=== PATIENT | female | born 1955 | race Caucasian/White ===

== ENCOUNTER 2018-05-08 11:49 | Observation (INO) | payer BC ==
--- NOTE | 2018-05-08 12:17 | PDOC ---
Attending Attestation - Resident Resident Name: HedyMelody mahmood - HPI HPI: 05/08/18 14:39 Pt presents to the ED complaining of a two week history of intermittent blood streaked sputum, accompanied by a 10 lb unintentional weightloss and night sweats. Patient has no risk factors for TB. Reports a 40 pack year smoking history. presented to her PMD today who advised her to come to the ED for further work up. Denies fevers. Denies risk factors for TB. - Physicial Exam PE: 05/08/18 15:08 agree with resident exam. Patient is resting comfortably in no acute distress. Lungs are clear. Heart: RRR no m/r/g. Pulm: CTA b/l Abdomen: soft, non tender, non distended. - Medical Decision Making 05/08/18 15:09 Pt presents to the ED complaining of two weeks of intermittent hemoptusis. Well appearing in the ED. Differential includes TB, malignancy, less likely PE or tracheoarterial fistula. Will check labs and Ct chest to evaluate for disease. Given possibility of active TB, will likely admit to medicine for evaluation for possible TB.
--- NOTE | 2018-05-08 12:52 | PDOC ---
History of Present Illness - General Chief Complaint: Hemoptysis Stated Complaint: Hemoptysis Time Seen by Provider: 05/08/18 12:15 History Source: Patient Exam Limitations: No Limitations - History of Present Illness Initial Comments: 05/08/18 12:51 Pt is a 63yo F with PMH of anxiety, hypothyroid, IBS presenting to ED from PCP office for evaluation of hemoptysis. Pt has been coughing up blood since Monday. Pt said she had one episode on 04/13, then nothing until this past Monday. Pt had coughed up a total of 6-8 of what looks like clots. She admits to 10lb weight loss since April and night sweats. She denies SOB, chest pain, lightheadedness, fever, chills, congestion, swelling/pain in the legs. She recently traveled to [place] in Sep/Oct and then to [facility] in April via [place]. She has been smoking 1ppd since she was in her 20s. She denies history of lung cancer in the family. Father was diagnosed with leukemia when he was "old". PMH: see hpi PSH: none Meds: Buspar, Lexapro, levothyroxine Allergies: nkda Social: 1ppd, occasional alcohol use, denies illicit drug use Past History - Past Medical History Allergies/Adverse Reactions: Allergies Allergy/AdvReac Type Severity Reaction Status Date / Time No Known Allergies Allergy Verified 05/08/18 12:11 Home Medications: Ambulatory Orders Ascorbic Acid [Vitamin C] 500 mg PO BID 03/11/16 Buspirone HCl [Buspar -] 10 mg PO BID 03/11/16 Calcium/Magnesium/Vit D3 [Calcium 500 mg Tablet] 2 each PO DAILY 03/11/16 Cholecalciferol (Vitamin D3) [Vitamin D3] 2,000 unit PO DAILY 03/11/16 Escitalopram Oxalate [Lexapro -] 20 mg PO HS 03/11/16 Latanoprost 0.005% Eye Drops [Xalatan 0.005% Eye Drops -] 1 drop OU HS 03/11/16 Levomefolate/B6/B12/Algal Oil [Metanx Capsule] 1 each PO DAILY 03/11/16 Levothyroxine [Synthroid -] 50 mcg PO DAILY 03/11/16 Anemia: No Asthma: No Cancer: No Cardiac Disorders: No CVA: No COPD: No CHF: No Dementia: No Diabetes: No GI Disorders: No Disorders: No HTN: No Hypercholesterolemia: No Liver Disease: No Seizures: No Thyroid Disease: Yes (HYPOTHYROIDSM) - Surgical History Abdominal Surgery: No Appendectomy: No Cardiac Surgery: No Cholecystectomy: No Lung Surgery: No Neurologic Surgery: No Orthopedic Surgery: No - Suicide/Smoking/Psychosocial Hx Smoking History: Former smoker Have you smoked in the past 12 months: No Number of Cigarettes Smoked Daily: 10 If you are a former smoker, when did you quit?: 3 MONTHS AGO Cigars Per Day: 0 Information on smoking cessation initiated: No Hx Alcohol Use: No Drug/Substance Use Hx: No Substance Use Type: Alcohol Review of Systems - Review of Systems Constitutional: Yes: Night Sweats, Unintentional Wgt. Loss. No: Chills, Fever, Weakness HEENTM: No: Recent change in vision, Double Vision Respiratory: Yes: Cough, Hemoptysis. No: Shortness of Breath, Wheezing Cardiac (ROS): No: Chest Pain, Lightheadedness, Palpitations, Syncope, Chest Tightness ABD/GI: Yes: Constipated (due to IBS), Diarrhea (due to IBS). No: Nausea, Vomiting : No: Burning, Dysuria, Frequency Musculoskeletal: Yes: Back Pain (chronic lower back pain) Neurological: No: Headache, Numbness, Tingling *Physical Exam - Vital Signs Last Vital Signs Temp Pulse Resp BP Pulse Ox 98.2 F 82 16 108/55 100 05/08/18 12:06 05/08/18 12:06 05/08/18 12:06 05/08/18 12:06 05/08/18 12:06 - Physical Exam General Appearance: Yes: Appropriately Dressed, Thin. No: Apparent Distress HEENT: positive: EOMI, ROSAURA, Pharynx Normal, Hearing Grossly Normal. negative: Pale Conjunctivae, Scleral Icterus (R), Scleral Icterus (L), Nasal Congestion Neck: positive: Trachea midline, Supple. negative: Carotid bruit, Lymphadenopathy (R), Lymphadenopathy (L) Respiratory/Chest: positive: Lungs Clear, Normal Breath Sounds. negative: Crackles, Rales, Rhonchi, Stridor Cardiovascular: positive: Regular Rhythm, Regular Rate, S1, S2. negative: JVD, Murmur Vascular Pulses: Carotid (R): 2+, Carotid (L): 2+, Dorsalis-Pedis (R): 2+, Doralis-Pedis (L): 2+ Gastrointestinal/Abdominal: positive: Normal Bowel Sounds, Soft, Tenderness ( diffuse tenderness). 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 DDx: malignancy, TB, PE Will do basic labs and CXR, CTA chest. 05/08/18 22:31 Labs wnl. No acute findings on CXR or CTA. Will admit obs for TB rule out. *DC/Admit/Observation/Transfer Diagnosis at time of Disposition: Tuberculosis - Discharge Dispostion Decision to Admit order: Yes - Referrals - Patient Instructions - Post Discharge Activity
[2018-05-08 13:38] LABS: BASO % 0.8 % (0-2.0); EOS % 1.1 % (0-4.5); HEMATOCRIT 38.3 % (32.4-45.2); HEMOGLOBIN 13.1 GM/dL (10.7-15.3); MCH 32.2 pg (25.7-33.7); MCHC 34.2 g/dl (32.0-36.0); MEAN CELL VOLUME 94.2 fl (80-96); MEAN PLT VOLUME 9.3 fl (7.5-11.1); MONO % 6.8 % (3.8-10.2); NEUT % 55.3 % (42.8-82.8); PLATELET COUNT 182 K/MM3 (134-434); RBC 4.07 M/mm3 (3.60-5.2); RDW 12.2 % (11.6-15.6)
[2018-05-08 13:54] LABS: INR 1.02 (0.83-1.09); PROTHROMBIN TIME (PATIENT) 11.5 SEC (9.7-13.0)
[2018-05-08 14:13] LABS: POTASSIUM 4.1 mmol/L (3.5-5.1)
[2018-05-08 14:39] LABS: ALBUMIN 3.7 g/dl (3.4-5.0); ANION GAP 10 MMOL/L (8-16); BILIRUBIN,TOTAL 0.2 mg/dL (0.2-1.0); BLOOD UREA NITROGEN 18 mg/dL (7-18); CALCIUM 9.3 mg/dL (8.5-10.1); CHLORIDE 105 mmol/L (98-107); CO2 28 mmol/L (21-32); CREATININE 0.9 mg/dL (0.55-1.02); GLUCOSE,RANDOM 109 mg/dL (74-106); SGOT/AST 18 U/L (15-37); SGPT/ALT 26 U/L (12-78); SODIUM 143 mmol/L (136-145); TOT PROT 6.8 g/dl (6.4-8.2)
[2018-05-08 14:40] LABS: ALK PHOS 55 U/L (45-117)
[2018-05-08] MEDS ORDERED: SODIUM CHLORIDE 1,000 ML IV STA (14:43)
--- NOTE | 2018-05-08 22:24 | PN ---
Teaching Attending Note Name of Resident: Margi Ellington ATTENDING PHYSICIAN STATEMENT I saw and evaluated the patient. Chart, data, imaging reviewed/ I reviewed the resident's note and discussed the case with the resident. I agree with the resident's findings and plan as documented. SUBJECTIVE: 63yo woman with baseline anxiety, IBS, chronic smoker -40 pack years c/o episode of brownish phlegm when coughing 04/23/18 and again on 05/03/18 with slightly more brownish-black sputum concerning for blood. She denied any shortness of breath, of significant chest pain but does c/o chronic abdominal pain that she attributes to IBS. No history of PPD or qunatiferon gold that she remembers. Sent to ER by PCP for further evaluation. No TB contacts, born in [place] , never incarcerated. OBJECTIVE: Last Vital Signs Temp Pulse Resp BP Pulse Ox 98.2 F 68 18 162/104 98 05/08/18 21:59 05/08/18 21:59 05/08/18 21:59 05/08/18 21:59 05/08/18 21:59 general- appears anxious, nad heent- at ,nc neck -no jvd chest -clear b/l cv -s1+S2+rrr abdomen -soft, no masses, normal BS, some guarding on palpation skin - no rashes seen Abnormal Lab Results 05/08/18 13:27 Random Glucose [address] and cxr -reviewed with report, CT neg for PE ASSESSMENT AND PLAN: 63yo woman with scant hemoptysis likely from bronchitis from smoking. No risk factors for TB identified and imaging was wnl. H,H wnl. -observation -stressed smoking cessation -avoid antiplatelet agents and heparin -quantiferon gold -monitor BP, H,H -restart home medications -SCDs for DVT ppx -see resident note for details
--- NOTE | 2018-05-08 22:37 | HP ---
CHIEF COMPLAINT: Blood in Cough PCP: Dr. 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 Patient has a 40 pack year smoking hx and says she has had chronic "smokers cough" for ~5 years. On 04/23, Patient finished breakfast and began to cough up white phlegm with a small amount of dark brown blood. Patient had no repeat of this cough with blood until 05/03 when she again, coughed up white phlegm with a much larger portion of dark brown blood. Since 05/03, this cough with small amounts of blood has occurs daily until yesterday. Today patient went to visit her PCP who suggested she come to the ED. The cough is accompanied by some midsternal chest tightness but no chest pain or pressure. She additionally complains of a subjective 10lb weight loss during April. She also experiences Night sweats that occurred initially but she now feels diaphoretic during the day as well. Lastly, she complains of a subjective audible wheeze heard over the past 2 weeks. Patient admits to being stressed lately due to her husbands health issues (3 seizures this year). She has tried to use milk and honey for her cough however this has not provided any relief. Patient denies any travel to [place], [place], or [place]. She denies having any hx of homelessness, IVDA, Working in a halfway or local intermodal truck driver health facility, being immunocompromised or malnourished. Patient denies having any sick contacts or anyone she knows of with a similar illness. Patient denies having any past PPD, Quantiferon tests, or HIV tests. 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 [employer] Residence: At home with Ambulation: On her own without assitance Family History: Mother: Hx of TB in 1930, HLD, Thyroid Goiter Father: Leukemia, Depression Allergies No Known Allergies Allergy (Verified 05/08/18 12:11) HOME MEDICATIONS: Home Medications Medication Instructions Recorded Ascorbic Acid [Vitamin C] 500 mg PO BID 03/11/16 Buspirone HCl [Buspar -] 10 mg PO BID 03/11/16 Calcium/Magnesium/Vit D3 [Calcium 2 each PO DAILY 03/11/16 500 mg Tablet] Cholecalciferol (Vitamin D3) 2,000 unit PO DAILY 03/11/16 [Vitamin D3] Escitalopram Oxalate [Lexapro -] 20 mg PO HS 03/11/16 Latanoprost 0.005% Eye Drops 1 drop OU HS 03/11/16 [Xalatan 0.005% Eye Drops -] Levomefolate/B6/B12/Algal Oil 1 each PO DAILY 03/11/16 [Metanx Capsule] Levothyroxine [Synthroid -] 50 mcg PO DAILY 03/11/16 REVIEW OF SYSTEMS CONSTITUTIONAL: Present: diaphoresis, night sweats, weight change Absent: fever, chills, generalized weakness, malaise, loss of appetite, HEENT: Absent: rhinorrhea, nasal congestion, throat pain, throat swelling, difficulty swallowing, mouth swelling, ear pain, eye pain, visual changes CARDIOVASCULAR: Present: Chest tightness Absent: chest pain, syncope, palpitations, irregular heart rate, lightheadedness , peripheral edema RESPIRATORY: Present: Cough (Smokers), hemoptysis, wheezing, Absent: shortness of breath, dyspnea with exertion, orthopnea, stridor, GASTROINTESTINAL: Present: abdominal pain, diarrhea, constipation Absent: abdominal distension, nausea, vomiting, melena, hematochezia GENITOURINARY: Absent: dysuria, frequency, urgency, hesitancy, hematuria, flank pain, genital pain MUSCULOSKELETAL: Absent: myalgia, arthralgia, joint swelling, back pain, neck pain SKIN: Absent: rash, itching, pallor HEMATOLOGIC/IMMUNOLOGIC: Absent: easy bleeding, easy bruising, lymphadenopathy, frequent infections ENDOCRINE: Present: unexplained weight loss, Absent: unexplained weight gain, heat intolerance, cold intolerance NEUROLOGIC: Absent: headache, focal weakness or paresthesias, dizziness, unsteady gait, seizure, mental status changes, bladder or bowel incontinence PSYCHIATRIC: Present: anxiety, Absent: depression, suicidal or homicidal ideation, hallucinations. PHYSICAL EXAMINATION Vital Signs - 24 hr 05/08/18 05/08/18 05/08/18 12:06 18:05 20:24 Temperature 98.2 F 98.4 F Pulse Rate 82 Pulse Rate [ 67 68 Right] Respiratory 16 17 18 Rate Blood Pressure 108/55 Blood Pressure 181/86 153/95 [Right Arm] O2 Sat by Pulse 100 100 98 Oximetry (%) GENERAL: Awake, alert, and fully oriented, in no acute distress. HEAD: NCAT EYES: PERRL, EOMI THROAT: Oropharynx clear without exudates. Moist mucous membranes. NECK: No JVD LUNGS: Breath sounds equal, clear to auscultation bilaterally. No wheezes, and no crackles. HEART: Regular rate and rhythm, normal S1 and S2 without murmur. ABDOMEN: Soft, Tender to palpation throughout, not distended, normoactive bowel sounds, no guarding MUSCULOSKELETAL: Normal range of motion at all joints. No CVA tenderness. EXTREMITIES: 2+ pulses, warm, well-perfused. No calf tenderness. No peripheral edema. NEUROLOGICAL: Cranial nerves II-XII intact. Normal speech. PSYCHIATRIC: Cooperative. Good eye contact. SKIN: Warm, dry, no rashes or lesions noted Laboratory Results - last 24 hr 05/08/18 05/08/18 05/08/18 13:27 13:27 13:27 WBC 6.0 RBC 4.07 Hgb 13.1 Hct 38.3 MCV 94.2 MCH 32.2 MCHC 34.2 RDW 12.2 Plt Count 182 MPV 9.3 Absolute Neuts (auto) 3.3 Neutrophils % 55.3 Lymphocytes % 36.0 Monocytes % 6.8 Eosinophils % 1.1 Basophils % 0.8 Nucleated RBC % 0 PT with INR 11.50 INR 1.02 Sodium 143 Potassium 4.1 Chloride 105 Carbon Dioxide 28 Anion Gap 10 BUN 18 Creatinine 0.9 Creat Clearance w eGFR > 60 Random Glucose 109 H Calcium 9.3 Total Bilirubin 0.2 AST 18 ALT 26 Alkaline Phosphatase 55 Troponin I < 0.02 Total Protein 6.8 Albumin 3.7 Active Medications Bupropion HCl (Wellbutrin Xl -) 150 mg PO DAILY [facility] Buspirone HCl (Buspar -) 10 mg PO TID [facility] Escitalopram Oxalate (Lexapro -) 20 mg PO DAILY [facility] Levothyroxine Sodium (Synthroid -) 50 mcg PO DAILY [facility] Nicotine (Nicoderm Patch -) 21 mg TD DAILY [facility] IMAGING: - CXR: No acute chest pathology. No comparison studies - CTA: No CT evidence of pulmonary embolism or other acute pathology. Minimal to mild bilateral lower lung field subpleural discoid atelectasis. Minimal to mild bilateral apical pleural thickening. ASSESSMENT/PLAN: 63 y/o female with a PMHx of Anxiety, Chronic Diarrhea/Constipation, Hypothyroidism, Migraines, Idiopathic Neuropathy in B/L Lower extremities presents with a 2 week hx of blood per sputum Likely from bronchitis from smoking will be observed 1. Hemoptysis - Like due to Bronchitis from extensive smoking hx; Less likely due to TB, PE, Malignancy - CXR: No acute chest pathology - CTA: No CT evidence of pulmonary embolism or other acute pathology. - Quantiferon gold test ordered to r/o TB; If positive can consider 3 sputum AFBs to r/o - Continue to monitor for tachycardia, Hypotension, drop in H&H - Stressed smoking cessation as patient admits she was able to quit for 3 years previously - Nicoderm 21mg - Continue Home dose Bupropion to aid in smoking cessation - As per nursing staff, Patient requests HIV and Hepatitis C Screening, Ordered 2. Anxiety - Continue Home dose Lexapro, Buspar (Med's Reconciled) 3. Hypothyroidism - Continue Home dose Synthroid 4. FEN - PO Fluids - Lytes WNL - Regular Diet 5. PPx - DVT: SCDs, Avoid antiplatelet agents and heparin Dispo: Med-Surg Obs Visit type - Emergency Visit Emergency Visit: Yes ED Registration Date: 05/08/18 Care time: The patient presented to the Emergency Department on the above date and was hospitalized for further evaluation of their emergent condition. - New Patient This patient is new to me today: Yes Date on this admission: 05/09/18 - Critical Care Critical Care patient: No Hospitalist Screening - Colonoscopy Questionnaire Colonoscopy Questionnaire: Colonoscopy Questionnaire - Patient: 50 - 75 years old and never had a screening colonoscopy: Unknown History of colon or rectal polyps, or CA: Unknown History of IBD, Crohn's disease or UC: Unknown History of abdominal radiation therapy as a child: Unknown - Relative: 1 with colon or rectal CA, or polyps at age 60 or younger: Unknown Colon or rectal CA diagnosed at age 45 or younger: Unknown Multiple relatives with colon or rectal CA: Unknown - Outcome: Screening Result: Negative Screen
[2018-05-08] MEDS: busPIRone HCL 10 MG TABLET (FP) PO SCH (23:27)
[2018-05-09 00:21] VITALS: BMI 20.9
[2018-05-09] MEDS: LEVOTHYROXINE NA 50 MCG TABLET (FP) PO SCH (06:13)
[2018-05-09] MEDS: busPIRone HCL 10 MG TABLET (FP) PO SCH ×3 (06:13→21:22)
[2018-05-09] MEDS: NICOTINE 21 MG/24 HOURS TOPICAL PATCH TD SCH (06:28)
[2018-05-09 08:09] LABS: BASO % 0.8 % (0-2.0); EOS % 1.9 % (0-4.5); HEMATOCRIT 38.1 % (32.4-45.2); LYMPH % 40.3 % (8-40); MEAN CELL VOLUME 94.1 fl (80-96); MONO % 8.5 % (3.8-10.2); NEUT % 48.5 % (42.8-82.8); PLATELET COUNT 176 K/MM3 (134-434); RBC 4.05 M/mm3 (3.60-5.2); RDW 12.2 % (11.6-15.6); WHITE BLOOD COUNT 5.6 K/mm3 (4.0-10.0)
[2018-05-09 08:16] LABS: ALBUMIN 3.5 g/dl (3.4-5.0); ALK PHOS 51 U/L (45-117); ANION GAP 7 MMOL/L (8-16); BILIRUBIN,TOTAL 0.4 mg/dL (0.2-1.0); BLOOD UREA NITROGEN 21 mg/dL (7-18); CALCIUM 8.8 mg/dL (8.5-10.1); CHLORIDE 107 mmol/L (98-107); CO2 28 mmol/L (21-32); CREATININE 0.8 mg/dL (0.55-1.02); GLUCOSE,RANDOM 91 mg/dL (74-106); PHOSPHOROUS 4.2 mg/dL (2.5-4.9); POTASSIUM 4.1 mmol/L (3.5-5.1); SGOT/AST 18 U/L (15-37); SGPT/ALT 23 U/L (12-78); SODIUM 142 mmol/L (136-145); TOT PROT 6.5 g/dl (6.4-8.2)
[2018-05-09] MEDS: ESCITALOPRAM OXALATE 20 MG TABLET (FP) PO SCH (10:16)
--- NOTE | 2018-05-09 11:59 | EKG ---
Test Reason : Blood Pressure : / mmHG Vent. Rate : 063 BPM Atrial Rate : 063 BPM P-R Int : 160 ms QRS Dur : 086 ms QT Int : 458 ms P-R-T Axes : 068 043 057 degrees QTc Int : 468 ms NORMAL SINUS RHYTHM NORMAL ECG NO PREVIOUS ECGS AVAILABLE Confirmed by JAVON HUGO, NATACHA ([id number]) on 05/09/2018 11:58:29 AM Referred By: Confirmed By:NATACHA ALEJANDRO MD
[2018-05-09] MEDS ORDERED: PT OWN MED DRAWER 7, Y5N ONE ×2 (13:10→21:18)
--- NOTE | 2018-05-09 14:53 | CON.PULM ---
Consult Consult Specialty:: PULMONARY Referred by:: FARRUKH Kaiser Reason for Consultation:: hemoptysis - History of Present Illness Chief Complaint: hemoptysis History of Present Illness: 63yo female with h/o anxiety, hypothyroidism, migraines, long time smoker who was admitted with hemoptysis x 2 weeks. Hemoptysis described as dark blood less than 1 tsp over 3 days. No chest pain or palpitations. No shortness of breath or wheezing. She did cough up a large hard material with the initial hemoptysis. She denies any fevers or chills but with occasional sweats. Has lost 5 lbs in the last month. Denies any prior PPD. Mother had TB in 1909 and was quarantined. She was recently in [place] on vacation. She started smoking at age 23, smoked on average 1/2-1 PPD until admission. Works in [email or web address]. Has cats at home. - History Source History Provided By: Patient, Medical Record Limitations to Obtaining History: No Limitations - Past Medical History ...LMP: 09/04/02 ...: No Psych: Yes: Anxiety Endocrine: Yes: Hypothyroidism - Alcohol/Substance Use Hx Alcohol Use: No - Smoking History Smoking history: Former smoker Have you smoked in the past 12 months: No Aproximately how many cigarettes per day: 10 If you are a former smoker, when did you quit?: 3 MONTHS AGO Home Medications - Allergies Allergies/Adverse Reactions: Allergies Allergy/AdvReac Type Severity Reaction Status Date / Time No Known Allergies Allergy Verified 05/08/18 12:11 - Home Medications Home Medications: Ambulatory Orders Buspirone HCl [Buspar -] 10 mg PO TID 03/11/16 Escitalopram Oxalate [Lexapro -] 20 mg PO DAILY 03/11/16 Levothyroxine [Synthroid -] 50 mcg PO DAILY 03/11/16 Bupropion HCl [Bupropion Xl] 150 mg PO DAILY 05/08/18 Review of Systems - Review of Systems Constitutional: reports: Unintentional Wgt. Loss. denies: Chills, Fever, Weakness Eyes: denies: Recent Change in Vision HENT: denies: Nasal Congestion, Throat Pain Neck: denies: Stiffness, Tenderness Cardiovascular: denies: Chest Pain, Palpitations, Shortness of Breath Respiratory: reports: Cough, Hemoptysis. denies: SOB on Exertion, Wheezing Gastrointestinal: denies: Abdominal Pain, Nausea, Vomiting Genitourinary: denies: Dysuria, Hematuria Neurological: denies: Dizziness, Headache Endocrine: reports: Unexplained Weight Loss Physical Exam Vital Sings: Vital Signs Temperature 98.7 F 05/09/18 09:00 Pulse Rate 71 05/09/18 09:00 Respiratory Rate 20 05/09/18 09:00 Blood Pressure 124/66 05/09/18 09:00 O2 Sat by Pulse Oximetry (%) 96 05/09/18 05:52 Constitutional: Yes: Anxious Eyes: Yes: Conjunctiva Clear, EOM Intact HENT: Yes: Atraumatic, Normocephalic, Other (large left nasal polyp) Neck: Yes: Supple Cardiovascular: Yes: Regular Rate and Rhythm Respiratory: Yes: Diminished (decreased breath sounds at the bases) ...Clubbing: No Gastrointestinal: Yes: Normal Bowel Sounds, Soft. No: Tenderness Edema: No Neurological: Yes: Alert, Oriented Labs: CBC, BMP 05/09/18 07:00 05/09/18 06:00 Imaging - Results Chest X-ray: Report Reviewed, Image Reviewed Cat Scan: Report Reviewed, Image Reviewed (apical thickening, no infiltrates, no endobronchial lesions noted) Problem List - Problems (1) Hemoptysis Code(s): R04.2 - HEMOPTYSIS (2) Acute bronchitis Code(s): J20.9 - ACUTE BRONCHITIS, UNSPECIFIED (3) Hypothyroidism Code(s): E03.9 - HYPOTHYROIDISM, UNSPECIFIED (4) Anxiety Code(s): F41.9 - ANXIETY DISORDER, UNSPECIFIED Assessment/Plan Hemoptysis likely from Acute Bronchitis Anxiety Hypothyroidism Smoker - CTA chest without evidence of pulmonary infiltrates, endobronchial lesions, pulmonary emboli or pulmonary AVM - less likely tuberculosis given absence of infiltrates but can check PPD or quantiferon gold - would obtain sputum culture if she produces any, she has not had any recurrent episodes since admission - would treat with empiric antibiotics x 5-7 days for acute bronchitis and a short course of prednisone 40mg daily x 5 days - she should see ENT as outpt for her large nasal polyp which could produce occult epistaxis and be mistaken for hemoptysis - outpt PFTs for her smoking history - smoking cessation encouraged - DVT prophylaxis Thank you for this consult Gal Phillips MD
--- NOTE | 2018-05-09 15:51 | PN ---
Physical Exam: SUBJECTIVE: Patient seen and examined at the bedside. In no acute distress. denies chest pain or shortness of breath. no further hempotysis per patient. OBJECTIVE: Vital Signs Period Temp Pulse Resp BP Sys/Davies Pulse Ox Last 24 Hr 97.9 F-98.7 F 64-71 16-20 111-181/64-104 96-100 GENERAL: The patient is awake, alert, and fully oriented, in no acute distress. HEAD: Normal with no signs of trauma. EYES: PERRL, extraocular movements intact, sclera anicteric, conjunctiva clear. No ptosis. ENT: Ears normal, nares patent, oropharynx clear without exudates, moist mucous membranes. NECK: Trachea midline, full range of motion, supple. LUNGS: Breath sounds equal, clear to auscultation bilaterally, no wheezes, no crackles HEART: Regular rate and rhythm, S1, S2 without murmur, rub or gallop. ABDOMEN: Soft, nontender, nondistended, normoactive bowel sounds, no guarding, no rebound, no hepatosplenomegaly, no masses. EXTREMITIES: no edema. NEUROLOGICAL: Normal speech, gait not observed. PSYCH: Normal mood, normal affect. SKIN: Warm, dry, normal turgor, no rashes or lesions noted Laboratory Results - last 24 hr 05/09/18 05/09/18 05/09/18 06:00 07:00 07:00 WBC 5.6 RBC 4.05 Hgb 13.0 Hct 38.1 MCV 94.1 MCH 32.0 MCHC 34.0 RDW 12.2 Plt Count 176 MPV 9.0 Absolute Neuts (auto) 2.7 Neutrophils % 48.5 Lymphocytes % 40.3 H Monocytes % 8.5 Eosinophils % 1.9 Basophils % 0.8 Nucleated RBC % 0 Sodium 142 Potassium 4.1 Chloride 107 Carbon Dioxide 28 Anion Gap 7 L BUN 21 H Creatinine 0.8 Creat Clearance w eGFR > 60 Random Glucose 91 Calcium 8.8 Phosphorus 4.2 Magnesium 2.0 Total Bilirubin 0.4 AST 18 ALT 23 Alkaline Phosphatase 51 Total Protein 6.5 Albumin 3.5 HIV 1&2 Antibody Screen Negative HIV P24 Antigen Negative Active Medications Generic Name Dose Route Start Last Admin Trade Name Freq PRN Reason Stop Dose Admin Bupropion HCl 150 mg 05/09/18 10:00 05/09/18 10:16 Wellbutrin Xl - PO 150 mg DAILY MICKI Administration Buspirone HCl 10 mg 05/08/18 23:15 05/09/18 13:32 Buspar - PO 10 mg TID MICKI Administration Escitalopram Oxalate 20 mg 05/09/18 10:00 05/09/18 10:16 Lexapro - PO 20 mg DAILY MICKI Administration Levofloxacin 500 mg 05/09/18 15:15 Levaquin - PO 05/13/18 06:01 DAILY@0600 MICKI Levothyroxine Sodium 50 mcg 05/09/18 07:00 05/09/18 06:13 Synthroid - PO 50 mcg 0700 MICKI Administration Nicotine 21 mg 05/09/18 06:30 05/09/18 06:28 Nicoderm Patch - TD 21 mg DAILY@0600 MICKI Administration Prednisone 40 mg 05/09/18 15:15 Deltasone - PO 05/13/18 10:01 DAILY MICKI ASSESSMENT/PLAN: Patient is a 63 year old female with a significant past medical history of migranes, anxiety, hypothyroidism, 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 She presents to the ED on 05/08/2018 with a 2 week history of coughing up blood. Patient states she has recently stopped smoking, but was a 40pack year smoker. Patient reports than on 04/23 she began to cough up white phlegm with a small amount of dark colored blood and then occurred again on 05/03 and again yesterday. She went to see her PCP who advised her to come to the ED. She also reports weight loss of 5lbs last month and night sweats. Of note, patient was recently in [place] on vacation in September 2017 imaging: chest CTA 05/08 ct negative for PE Pulmonary: Hemoptysis, unclear etiology, however patient a long time smoker: hmg/hct stable. Patient needs to be ruled out for TB, quant pending. CTA negative for PE. Lungs clear to auscultation, no wheezing, not short of breath. HIV negative. Pulmonary notes reviewed. Patient will need outpatient follow up with ENT. Sputum cultured ordered. Psyche: anxiety/depression: On Lexapro Endocrine: hypothyroidism: on synthroid fen tolerating po monitor electrolytes with daily labs tolerating diet prophy scds, ambulation a/c contraindicated for hemopytsis Visit type - Emergency Visit Emergency Visit: Yes ED Registration Date: 05/08/18 Care time: The patient presented to the Emergency Department on the above date and was hospitalized for further evaluation of their emergent condition. - New Patient This patient is new to me today: Yes Date on this admission: 05/09/18 - Critical Care Critical Care patient: No - Discharge Referral Referred to [facility] Med P.C.: No
[2018-05-09] MEDS: predniSONE 20 MG TABLET (UD) PO SCH (15:57)
[2018-05-10] MEDS: LEVOTHYROXINE NA 50 MCG TABLET (FP) PO SCH (06:15)
[2018-05-10] MEDS: NICOTINE 21 MG/24 HOURS TOPICAL PATCH TD SCH (06:15)
[2018-05-10] MEDS: busPIRone HCL 10 MG TABLET (FP) PO SCH ×3 (06:33→22:14)
[2018-05-10 07:59] LABS: CHLORIDE 106 mmol/L (98-107); POTASSIUM 4.3 mmol/L (3.5-5.1); SODIUM 142 mmol/L (136-145)
[2018-05-10 08:00] LABS: BASO % 0.5 % (0-2.0); EOS % 0.1 % (0-4.5); HEMATOCRIT 39.4 % (32.4-45.2); HEMOGLOBIN 13.3 GM/dL (10.7-15.3); LYMPH % 20.1 % (8-40); MCH 31.9 pg (25.7-33.7); MCHC 33.9 g/dl (32.0-36.0); MEAN CELL VOLUME 94.4 fl (80-96); MEAN PLT VOLUME 9.6 fl (7.5-11.1); MONO % 6.6 % (3.8-10.2); NEUT % 72.7 % (42.8-82.8); PLATELET COUNT 185 K/MM3 (134-434); RBC 4.18 M/mm3 (3.60-5.2); RDW 12.3 % (11.6-15.6); WHITE BLOOD COUNT 7.9 K/mm3 (4.0-10.0)
[2018-05-10 08:17] LABS: ALBUMIN 3.5 g/dl (3.4-5.0); ALK PHOS 52 U/L (45-117); ANION GAP 11 MMOL/L (8-16); BILIRUBIN,TOTAL 0.3 mg/dL (0.2-1.0); BLOOD UREA NITROGEN 19 mg/dL (7-18); CALCIUM 9.5 mg/dL (8.5-10.1); CO2 25 mmol/L (21-32); CREATININE 0.8 mg/dL (0.55-1.02); GLUCOSE,RANDOM 119 mg/dL (74-106); MAGNESIUM 2.1 mg/dL (1.8-2.4); SGOT/AST 17 U/L (15-37); SGPT/ALT 23 U/L (12-78); TOT PROT 6.5 g/dl (6.4-8.2)
[2018-05-10] MEDS ORDERED: TUBERCULIN PPD 5 TU/0.1ML SYRINGE (IN PATIENT USE ONLY) ID ONE (09:00)
[2018-05-10] MEDS ORDERED: PT OWN MED DRAWER 7, Y5N ONE ×3 (09:29→22:06)
[2018-05-10] MEDS: ESCITALOPRAM OXALATE 20 MG TABLET (FP) PO SCH (09:57)
[2018-05-10] MEDS: predniSONE 20 MG TABLET (UD) PO SCH (09:57)
--- NOTE | 2018-05-10 13:38 | PN ---
Progress Note, Physician History of Present Illness: PULMONARY ALERT,NO DISTRESS,-SOB,- HEMOPTYSIS - Current Medication List Current Medications: Active Medications Buspirone HCl (Buspar -) 10 mg PO BID [facility] Last Admin: 05/10/18 09:57 Dose: 10 mg Escitalopram Oxalate (Lexapro -) 20 mg PO DAILY [facility] Last Admin: 05/10/18 09:57 Dose: 20 mg Levofloxacin (Levaquin -) 500 mg PO DAILY@0600 [facility] Stop: 05/13/18 06:01 Last Admin: 05/10/18 06:15 Dose: 500 mg Levothyroxine Sodium (Synthroid -) 50 mcg PO 07 [facility] Last Admin: 05/10/18 06:15 Dose: 50 mcg Nicotine (Nicoderm Patch -) 21 mg TD DAILY@06 [facility] Last Admin: 05/10/18 06:15 Dose: 21 mg Prednisone (Deltasone -) 40 mg PO DAILY [facility] Stop: 05/13/18 10:01 Last Admin: 05/10/18 09:57 Dose: 40 mg - Objective Vital Signs: Vital Signs Temperature 98.5 F 05/10/18 10:00 Pulse Rate 86 05/10/18 10:00 Respiratory Rate 18 05/10/18 10:00 Blood Pressure 138/77 05/10/18 10:00 O2 Sat by Pulse Oximetry (%) 97 05/10/18 10:00 Constitutional: Yes: Calm, Thin Eyes: Yes: WNL HENT: Yes: WNL Neck: Yes: WNL Cardiovascular: Yes: Regular Rate and Rhythm, S1, S2 Respiratory: Yes: CTA Bilaterally Gastrointestinal: Yes: Normal Bowel Sounds, Soft Extremities: Yes: WNL Edema: No Labs: CBC, BMP 05/10/18 06:30 05/10/18 06:30 INR, PTT INR 1.02 (0.83-1.09) 05/08/18 13:27 Assessment/Plan Problem List - Problems (1) Hemoptysis Code(s): R04.2 - HEMOPTYSIS (2) Acute bronchitis Code(s): J20.9 - ACUTE BRONCHITIS, UNSPECIFIED (3) Hypothyroidism Code(s): E03.9 - HYPOTHYROIDISM, UNSPECIFIED (4) Anxiety Code(s): F41.9 - ANXIETY DISORDER, UNSPECIFIED Assessment/Plan Hemoptysis likely from Acute Bronchitis Anxiety Hypothyroidism Smoker - CTA chest without evidence of pulmonary infiltrates, endobronchial lesions, pulmonary emboli or pulmonary AVM - less likely tuberculosis given absence of infiltrates but can check PPD or quantiferon gold - would obtain sputum culture - would treat with empiric antibiotics x 5-7 days for acute bronchitis and a short course of prednisone 40mg daily x 5 days - she should see ENT as outpt for her large nasal polyp which could produce occult epistaxis and be mistaken for hemoptysis - outpt PFTs - smoking cessation encouraged - DVT prophylaxis - yearly low dose chest ct for lung cancer screening DR OVALLE
--- NOTE | 2018-05-10 17:49 | PN ---
Physical Exam: SUBJECTIVE: Patient seen and examined at the bedside. feels well. denies shortness of breath, no further hemoptysis. OBJECTIVE: Vital Signs Period Temp Pulse Resp BP Sys/Davies Pulse Ox Last 24 Hr 98.4 F-98.9 F 60-103 16-18 129-144/56-91 95-97 GENERAL: The patient is awake, alert, and fully oriented, in no acute distress. HEAD: Normal with no signs of trauma. EYES: PERRL, extraocular movements intact, sclera anicteric, conjunctiva clear. No ptosis. ENT: Ears normal, nares patent, oropharynx clear without exudates, moist mucous membranes. NECK: Trachea midline, full range of motion, supple. LUNGS: Breath sounds equal, clear to auscultation bilaterally, no wheezes, no crackles HEART: Regular rate and rhythm, S1, S2 without murmur, rub or gallop. ABDOMEN: Soft, nontender, nondistended, normoactive bowel sounds, no guarding, no rebound, no hepatosplenomegaly, no masses. EXTREMITIES: no edema. NEUROLOGICAL: Normal speech, gait not observed. PSYCH: Normal mood, normal affect. SKIN: Warm, dry, normal turgor, no rashes or lesions noted Laboratory Results - last 24 hr 05/09/18 05/10/18 05/10/18 07:00 06:30 06:30 WBC 7.9 RBC 4.18 Hgb 13.3 Hct 39.4 MCV 94.4 MCH 31.9 MCHC 33.9 RDW 12.3 Plt Count 185 MPV 9.6 Absolute Neuts (auto) 5.7 Neutrophils % 72.7 D Lymphocytes % 20.1 D Monocytes % 6.6 Eosinophils % 0.1 D Basophils % 0.5 Nucleated RBC % 0 Sodium 142 Potassium 4.3 Chloride 106 Carbon Dioxide 25 Anion Gap 11 BUN 19 H Creatinine 0.8 Creat Clearance w eGFR > 60 Random Glucose 119 H Calcium 9.5 Magnesium 2.1 Total Bilirubin 0.3 AST 17 ALT 23 Alkaline Phosphatase 52 Total Protein 6.5 Albumin 3.5 Hep C Ab Diagnostic <0.1 Liver Fibrosis Interp Active Medications Generic Name Dose Route Start Last Admin Trade Name Freq PRN Reason Stop Dose Admin Buspirone HCl 10 mg 05/10/18 10:00 05/10/18 09:57 Buspar - PO 10 mg BID MICKI Administration Escitalopram Oxalate 20 mg 05/09/18 10:00 05/10/18 09:57 Lexapro - PO 20 mg DAILY MICKI Administration Levofloxacin 500 mg 05/09/18 15:15 05/10/18 06:15 Levaquin - PO 05/13/18 06:01 500 mg DAILY@0600 MICKI Administration Levothyroxine Sodium 50 mcg 05/09/18 07:00 05/10/18 06:15 Synthroid - PO 50 mcg 0700 MICKI Administration Nicotine 21 mg 05/09/18 06:30 05/10/18 06:15 Nicoderm Patch - TD 21 mg DAILY@0600 MICKI Administration Prednisone 40 mg 05/09/18 15:15 05/10/18 09:57 Deltasone - PO 05/13/18 10:01 40 mg DAILY MICKI Administration ASSESSMENT/PLAN: Patient is a 63 year old female with a significant past medical history of migranes, anxiety, hypothyroidism, 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 She presents to the ED on 05/08/2018 with a 2 week history of coughing up blood. Patient states she has recently stopped smoking, but was a 40pack year smoker. Patient reports than on 04/23 she began to cough up white phlegm with a small amount of dark colored blood and then occurred again on 05/03 and again yesterday. She went to see her PCP who advised her to come to the ED. She also reports weight loss of 5lbs last month and night sweats. Of note, patient was recently in [place] on vacation in September 2017 imaging: chest CTA 05/08 ct negative for PE Pulmonary: Hemoptysis, unclear etiology, however patient a long time smoker: hmg/hct stable. Patient needs to be ruled out for TB, quant pending. CTA negative for PE. Lungs clear to auscultation, no wheezing, not short of breath. HIV negative. Pulmonary notes reviewed. Patient will need outpatient follow up with ENT. Sputum cultured ordered. ppd placed on right forearm today. Psyche: anxiety/depression: On Lexapro Endocrine: hypothyroidism: on synthroid fen tolerating po monitor electrolytes with daily labs tolerating diet prophy scds, ambulation a/c contraindicated for hemopytsis Visit type - Emergency Visit Emergency Visit: Yes ED Registration Date: 05/08/18 Care time: The patient presented to the Emergency Department on the above date and was hospitalized for further evaluation of their emergent condition. - New Patient This patient is new to me today: No - Critical Care Critical Care patient: No - Discharge Referral Referred to [facility] No
[2018-05-11] MEDS: LEVOTHYROXINE NA 50 MCG TABLET (FP) PO SCH (06:09)
[2018-05-11] MEDS: NICOTINE 21 MG/24 HOURS TOPICAL PATCH TD SCH (06:10)
[2018-05-11] MEDS ORDERED: PT OWN MED DRAWER 7, Y5N ONE (09:16)
[2018-05-11] MEDS: ESCITALOPRAM OXALATE 20 MG TABLET (FP) PO SCH (09:30)
[2018-05-11] MEDS: predniSONE 20 MG TABLET (UD) PO SCH (09:34)
[2018-05-11] MEDS: busPIRone HCL 10 MG TABLET (FP) PO SCH (09:34)
[2018-05-11 09:59] LABS: BASO % 0.6 % (0-2.0); EOS % 0.6 % (0-4.5); HEMATOCRIT 38.1 % (32.4-45.2); HEMOGLOBIN 12.8 GM/dL (10.7-15.3); LYMPH % 30.1 % (8-40); MCH 31.7 pg (25.7-33.7); MCHC 33.7 g/dl (32.0-36.0); MEAN PLT VOLUME 8.9 fl (7.5-11.1); MONO % 3.9 % (3.8-10.2); NEUT % 64.8 % (42.8-82.8); PLATELET COUNT 163 K/MM3 (134-434); RBC 4.05 M/mm3 (3.60-5.2); RDW 12.1 % (11.6-15.6); WHITE BLOOD COUNT 9.7 K/mm3 (4.0-10.0)
[2018-05-11 10:22] LABS: CHLORIDE 103 mmol/L (98-107); POTASSIUM 3.7 mmol/L (3.5-5.1); SODIUM 141 mmol/L (136-145)
[2018-05-11 10:29] LABS: ALBUMIN 3.4 g/dl (3.4-5.0); ALK PHOS 51 U/L (45-117); ANION GAP 10 MMOL/L (8-16); BILIRUBIN,TOTAL 0.3 mg/dL (0.2-1.0); BLOOD UREA NITROGEN 16 mg/dL (7-18); CALCIUM 9.1 mg/dL (8.5-10.1); CO2 28 mmol/L (21-32); CREATININE 0.8 mg/dL (0.55-1.02); GLUCOSE,RANDOM 102 mg/dL (74-106); MAGNESIUM 1.8 mg/dL (1.8-2.4); SGOT/AST 12 U/L (15-37); SGPT/ALT 22 U/L (12-78); TOT PROT 6.4 g/dl (6.4-8.2)
--- NOTE | 2018-05-11 12:44 | CON.ENT ---
Consult Consult Specialty:: ENT Reason for Consultation:: r/o nasal cause of hemoptysis - History of Present Illness Chief Complaint: 63yo female with h/o anxiety, hypothyroidism, migraines, long time smoker who was admitted with hemoptysis x 2 weeks. She also has chronic sinus headaches and migraines, treated with neck trigger pt injections. Hemoptysis described as dark blood less than 1 tsp over 3 days. No chest pain or palpitations. No shortness of breath or wheezing. She did cough up a large hard material with the initial hemoptysis. She denies any fevers or chills but with occasional sweats. Has lost 5 lbs in the last month. Denies any prior PPD. Mother had TB in 1909 and was quarantined. She was recently in [place] on vacation. She started smoking at age 23, smoked on average 1/2-1 PPD until admission. Works in [id number]. Has cats at home. She denies jill al congestion and d/c, and denies overt epistaxis - History Source History Provided By: Patient, Medical Record Limitations to Obtaining History: No Limitations - Past Medical History ...LMP: 09/04/02 ...: No Psych: Yes: Anxiety Endocrine: Yes: Hypothyroidism - Alcohol/Substance Use Hx Alcohol Use: No - Smoking History Smoking history: Former smoker Have you smoked in the past 12 months: No Aproximately how many cigarettes per day: 10 If you are a former smoker, when did you quit?: 3 MONTHS AGO Home Medications - Allergies Allergies/Adverse Reactions: Allergies Allergy/AdvReac Type Severity Reaction Status Date / Time No Known Allergies Allergy Verified 05/08/18 12:11 - Home Medications Home Medications: Ambulatory Orders Buspirone HCl [Buspar -] 10 mg PO TID 03/11/16 Escitalopram Oxalate [Lexapro -] 20 mg PO DAILY 03/11/16 Levothyroxine [Synthroid -] 50 mcg PO DAILY 03/11/16 Bupropion HCl [Bupropion Xl] 150 mg PO DAILY 05/08/18 Physical Exam-ENT Vital Signs: Vital Signs Temperature 98.0 F 05/11/18 10:00 Pulse Rate 76 05/11/18 10:00 Respiratory Rate 16 05/11/18 10:00 Blood Pressure 139/84 05/11/18 10:00 O2 Sat by Pulse Oximetry (%) 97 05/11/18 10:00 Constitutional: Yes: Well Nourished, No Distress Head: Yes: WNL Face: Yes: WNL, Symmetrical Eyes: Yes: WNL Nose: Yes: WNL Nasal Passage: Yes: WNL Oral/Pharynx: Yes: WNL Outer Ear: Yes: WNL Ear Canal: Yes: WNL Neck: Yes: WNL Problem List - Problems (1) Hemoptysis Assessment/Plan: No ENT source of hemoptysis is seen. Code(s): R04.2 - HEMOPTYSIS (2) Sinus headache Assessment/Plan: F/U as outpatient as needed Code(s): R51 - HEADACHE Procedure - Procedure and Findings -: Nasal endoscopy: Septum fairly straight. Mild turbinate hypertrophy bilat. No masses, no polyps, no d/c, no blood, no sign of infection. Meati normal, nasopharynx is normal.
--- NOTE | 2018-05-11 13:10 | PN ---
Progress Note (short form) - Note Progress Note: PULMONARY AWAKE/ALERT NO HEMOPTYSIS LESS COUGH/NO SPUTUM VSS ANICTERIC CHEST CLEAR S1S2 BS+ SOFT NONTENDER NO EDEMA LABS/MEDS/NOTES/IMAGES REVIEWED PPD NEGATIVE AFTER 48 HRS CTA NO INFILTRATE/NO PE Hemoptysis likely from Acute Bronchitis Anxiety Hypothyroidism Smoker - CTA chest without evidence of pulmonary infiltrates, endobronchial lesions, pulmonary emboli or pulmonary AVM - PPD negative - would treat with empiric antibiotics x 5-7 days for acute bronchitis and a short course of prednisone 40mg daily x 5 days as an outpatient - outpt PFTs - smoking cessation encouraged - DVT prophylaxis - yearly low dose chest ct for lung cancer screening Yo NUÑEZ MD
[2018-05-11 15:29] VITALS: BP 146/72; PULSE 81; TEMP 98.2
--- NOTE | 2018-05-11 17:33 | DS ---
Physical Exam: SUBJECTIVE: Patient seen and examined at the bedside. Feels well, no further hemoptysis. OBJECTIVE: ppd placed, negative negative for TB Vital Signs Period Temp Pulse Resp BP Sys/Davies Pulse Ox Last 24 Hr 97.6 F-98.3 F 53-81 16-20 119-146/65-84 95-97 PHYSICAL EXAM GENERAL: The patient is awake, alert, and fully oriented, in no acute distress. HEAD: Normal with no signs of trauma. EYES: PERRL, extraocular movements intact, sclera anicteric, conjunctiva clear. No ptosis. ENT: Ears normal, nares patent, oropharynx clear without exudates, moist mucous membranes. NECK: Trachea midline, full range of motion, supple. LUNGS: Breath sounds equal, clear to auscultation bilaterally, no wheezes, no crackles HEART: Regular rate and rhythm, S1, S2 without murmur, rub or gallop. ABDOMEN: Soft, nontender, nondistended, normoactive bowel sounds, no guarding, no rebound, no hepatosplenomegaly, no masses. EXTREMITIES: no edema. NEUROLOGICAL: Normal speech, gait not observed. PSYCH: Normal mood, normal affect. SKIN: Warm, dry, normal turgor, no rashes or lesions noted LABS Laboratory Results - last 24 hr 05/09/18 05/11/18 05/11/18 07:00 09:44 09:44 WBC 9.7 RBC 4.05 Hgb 12.8 Hct 38.1 MCV 94.0 MCH 31.7 MCHC 33.7 RDW 12.1 Plt Count 163 MPV 8.9 Absolute Neuts (auto) 6.3 Neutrophils % 64.8 Lymphocytes % 30.1 D Monocytes % 3.9 Eosinophils % 0.6 D Basophils % 0.6 Nucleated RBC % 0 Sodium 141 Potassium 3.7 Chloride 103 Carbon Dioxide 28 Anion Gap 10 BUN 16 Creatinine 0.8 Creat Clearance w eGFR > 60 Random Glucose 102 Calcium 9.1 Magnesium 1.8 Total Bilirubin 0.3 AST 12 L ALT 22 Alkaline Phosphatase 51 Total Protein 6.4 Albumin 3.4 TB Test (QFT) Negative HOSPITAL COURSE: Date of Admission:05/08/18 Date of Discharge: 05/11/18 ASSESSMENT/PLAN: Patient is a 63 year old female with a significant past medical history of migranes, anxiety, hypothyroidism, 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 She presents to the ED on 05/08/2018 with a 2 week history of coughing up blood. Patient states she has recently stopped smoking, but was a 40pack year smoker. Patient reports than on 04/23 she began to cough up white phlegm with a small amount of dark colored blood and then occurred again on 05/03 and again on 05/07 She went to see her PCP who advised her to come to the ED. She also reports weight loss of 5lbs last month and night sweats. Of note, patient was recently in [place] on vacation in September 2017 imaging: chest CTA 05/08 ct negative for PE Pulmonary: Hemoptysis: resolved. hmg/hct stable. Ruled out for TB, quant negative, PPD placed negative. Lungs clear to auscultation, no wheezing, not short of breath. HIV negative. Pulmonary notes reviewed. Patient to be discharged on levaquin 500mg x 5 days and prednisone 40mg daily x 5 days Psyche: anxiety/depression: On Lexapro Endocrine: hypothyroidism: on synthroid Minutes to complete discharge: 50 Discharge Summary Reason For Visit: Hemoptysis Current Active Problems Acute bronchitis (Acute) Anxiety (Acute) Hemoptysis (Acute) Hypothyroidism (Acute) Sinus headache (Acute) Condition: Improved - Instructions Diet, Activity, Other Instructions: Mrs Wilson: You will be discharged home today as your TB and PPD are both negative. Please follow up with your primary care doctor within 1 week after discharge. New home medications: Levaquin 500mg for 5 more days (called into your pharmacy) Prednisone 40mg daily for 5 more days (called into your pharmacy) Protonix 40mg daily (take this while on the steriods to protect your stomach lining). Please return to the ER with any new or worsening symptoms. Thank you Disposition: HOME - Home Medications Comprehensive Discharge Medication List: Ambulatory Orders Buspirone HCl [Buspar -] 10 mg PO TID 03/11/16 Escitalopram Oxalate [Lexapro -] 20 mg PO DAILY 03/11/16 Levothyroxine [Synthroid -] 50 mcg PO DAILY 03/11/16 Bupropion HCl [Bupropion Xl] 150 mg PO DAILY 05/08/18 Pantoprazole Sodium [Protonix] 40 mg PO DAILY #5 tablet. 05/11/18 levoFLOXacin [Levaquin -] 500 mg PO DAILY@0600 #5 tablet 05/11/18 predniSONE [Deltasone -] 40 mg PO DAILY #10 tablet 05/11/18 This patient is new to me today: No Emergency Visit: Yes ED Registration Date: 05/08/18 Care time: The patient presented to the Emergency Department on the above date and was hospitalized for further evaluation of their emergent condition. Critical Care patient: No - Discharge Referral Referred to [facility] Med [facility].C.: No
== END 2018-05-11 19:20 | disposition home or self-care (01) ==
LOC: JER 11:49 → JERBED 18:57 → J4S 22:34
PROVIDERS: ADMIT Internal Medicine; ATTEND Nurse Practitioner Family
PROC: 3E0337Z Introduction of Electrolytic and Water Balance Substance into Peripheral Vein, Percutaneous Approach (ICD-10-PCS; principal; 2018-05-08)
DX: R04.2 Hemoptysis (principal); J20.9 Acute bronchitis, unspecified; F41.9 Anxiety disorder, unspecified; E03.9 Hypothyroidism, unspecified; K58.9 Irritable bowel syndrome, unspecified; G90.09 Other idiopathic peripheral autonomic neuropathy; R51 Headache
CPT/HCPCS: 36415; 71045-TC-FY; 71275-TC; 80053; 83735; 84100; 84484; 85025; 85610; 86480; 86803; 87389; 93005; 93010; 99285-25; G0378; J7030

== ENCOUNTER 2020-11-03 16:23 | Inpatient (IN) | payer OTHER, MEDICARE ==
[2020-11-03 18:08] VITALS: BMI 21.7
[2020-11-03 18:21] LABS: BASO % 0.3 % (0-2.0); HEMATOCRIT 39.9 % (32.4-45.2); HEMOGLOBIN 13.7 GM/dL (10.7-15.3); LYMPH % 15.9 % (8-40); MCH 32.2 pg (25.7-33.7); MCHC 34.4 g/dl (32.0-36.0); MEAN CELL VOLUME 93.7 fl (80-96); MEAN PLT VOLUME 9.3 fl (7.5-11.1); MONO % 7.1 % (3.8-10.2); NEUT % 76.7 % (42.8-82.8); PLATELET COUNT 142 K/MM3 (134-434); RBC 4.26 M/mm3 (3.60-5.2); RDW 12.3 % (11.6-15.6); WHITE BLOOD COUNT 7.7 K/mm3 (4.0-10.0)
[2020-11-03 18:26] LABS: INR 0.98 (0.83-1.09); PROTHROMBIN TIME (PATIENT) 12.1 SEC (9.7-13.0)
[2020-11-03 18:28] LABS: ACTIVATED PTT 32.4 SECONDS (25.2-36.5)
[2020-11-03 18:34] LABS: CHLORIDE 106 mmol/L (98-107); POTASSIUM 4.5 mmol/L (3.5-5.1); SODIUM 140 mmol/L (136-145)
[2020-11-03 18:36] LABS: CALCIUM 8.8 mg/dL (8.5-10.1)
[2020-11-03 18:37] LABS: ALBUMIN 3.7 g/dl (3.4-5.0); ANION GAP 5 MMOL/L (8-16); BLOOD UREA NITROGEN 17.2 mg/dL (7-18); CO2 29 mmol/L (21-32); GLUCOSE,RANDOM 117 mg/dL (74-106)
[2020-11-03 18:40] LABS: SGOT/AST 12 U/L (15-37)
[2020-11-03 18:41] LABS: LDH 212 U/L (84-246)
[2020-11-03 18:48] LABS: SGPT/ALT 22 U/L (13-61)
[2020-11-03 18:49] LABS: BILIRUBIN,TOTAL 0.4 mg/dL (0.2-1); TOT PROT 7.3 g/dl (6.4-8.2)
[2020-11-03 18:50] LABS: ALK PHOS 63 U/L (45-117)
[2020-11-03] MEDS ORDERED: HEPARIN NA (PORCINE) 5,000 UNITS/ML 1ML VIAL IVPUSH PRN ×2 (20:49)
[2020-11-03] MEDS ORDERED: HEPARIN NA (PORCINE) 5,000 UNITS/ML 1ML VIAL ONE (21:22)
[2020-11-03] MEDS ORDERED: HEPARIN INFUSION - 25,000 UNITS/500 ML INFUS.BAG IVPB ONE (21:22)
[2020-11-03] MEDS: HEPARIN SOD,PORK IN 0.45% NACL 25,000 UNITS/500 ML INFUS.BAG IVPB SCH (22:12)
[2020-11-04] MEDS: LEVOTHYROXINE NA 50 MCG TABLET (FP) PO SCH (07:33)
[2020-11-04] MEDS ORDERED: CHOLECALCIFEROL (VIT D3) 1,000 UNIT (25 MCG) TABLET ONE (09:07)
[2020-11-04] MEDS ORDERED: ZINC SULFATE 220 MG CAPSULE (FP) ONE (09:07)
[2020-11-04] MEDS ORDERED: ASCORBIC ACID 500 MG TABLET (FP) ONE (09:07)
[2020-11-04] MEDS: ZINC SULFATE 220 MG CAPSULE (FP) PO SCH (09:33)
[2020-11-04] MEDS: ASCORBIC ACID 500 MG TABLET (FP) PO SCH ×2 (09:33→23:05)
[2020-11-04] MEDS: PAROXETINE HCL 20 MG, PAROXETINE HCL 10 MG PO SCH (09:33)
[2020-11-04] MEDS: CHOLECALCIFEROL (VIT D3) 1,000 UNIT (25 MCG) TABLET PO SCH (09:33)
[2020-11-04] MEDS ORDERED: PARoxetine HCL 30 MG TABLET PO SCH (10:00)
[2020-11-04 10:37] LABS: BLOOD UREA NITROGEN 17.7 mg/dL (7-18)
[2020-11-04 10:40] LABS: CREATININE 0.8 mg/dL (0.55-1.3)
[2020-11-04 10:41] LABS: BILIRUBIN,TOTAL 0.3 mg/dL (0.2-1)
[2020-11-04 10:42] LABS: TOT PROT 6.8 g/dl (6.4-8.2)
[2020-11-04 10:47] LABS: ALBUMIN 3.5 g/dl (3.4-5.0); CALCIUM 8.8 mg/dL (8.5-10.1); MAGNESIUM 2.1 mg/dL (1.8-2.4); POTASSIUM 4.2 mmol/L (3.5-5.1)
[2020-11-04] MEDS ORDERED: LIDOCAINE 5% TOPICAL PATCH TP ONE (21:36)
[2020-11-04] MEDS: ACETAMINOPHEN 325 MG TABLET (FP) PO PRN (22:00)
[2020-11-04] MEDS: HEPARIN SOD,PORK IN 0.45% NACL 25,000 UNITS/500 ML INFUS.BAG IVPB SCH (23:04)
[2020-11-04] MEDS: RIVAROXABAN 15 MG TABLET PO SCH (23:05)
[2020-11-05] MEDS ORDERED: OXYMETAZOLINE 0.05% NASAL SOLUTION 15 ML BOTTLE NS PRN (00:10)
[2020-11-05] MEDS ORDERED: traMADol HCL 50 MG TABLET PO ONE (00:14)
[2020-11-05] MEDS ORDERED: ACETAMINOPHEN 500 MG TABLET (FP) PO ONE (05:24)
[2020-11-05] MEDS ORDERED: clonazePAM 0.5 MG TABLET PO ONE (05:25)
[2020-11-05] MEDS ORDERED: NITROGLYCERIN SUBLINGUAL 1/150 0.4 MG TAB ONE (06:16)
[2020-11-05] MEDS ORDERED: MORPHINE SULFATE 2 MG/ML VIAL ONE (06:22)
[2020-11-05] MEDS ORDERED: MORPHINE SULFATE 2 MG/ML VIAL IVPUSH ONE (06:23)
[2020-11-05] MEDS ORDERED: NITROGLYCERIN SUBLINGUAL 1/150 0.4 MG TAB SL ONE (06:27)
[2020-11-05] MEDS ORDERED: NITROGLYCERIN SUBLINGUAL 1/200 0.3 MG BTL SL ONE (06:27)
[2020-11-05] MEDS ORDERED: LACTATED RINGERS SOLUTION 1000 ML INFUS.BAG IV ONE (06:28)
[2020-11-05 08:03] LABS: BASO % 0.3 % (0-2.0); EOS % 0.2 % (0-4.5); HEMATOCRIT 34.3 % (32.4-45.2); HEMOGLOBIN 11.8 GM/dL (10.7-15.3); LYMPH % 25.2 % (8-40); MCH 32.3 pg (25.7-33.7); MCHC 34.4 g/dl (32.0-36.0); MEAN CELL VOLUME 93.6 fl (80-96); MEAN PLT VOLUME 10.1 fl (7.5-11.1); MONO % 10.4 % (3.8-10.2); NEUT % 63.9 % (42.8-82.8); PLATELET COUNT 152 K/MM3 (134-434); RBC 3.66 M/mm3 (3.60-5.2); RDW 12.2 % (11.6-15.6); WHITE BLOOD COUNT 8.5 K/mm3 (4.0-10.0)
[2020-11-05 08:12] LABS: INR 1.51 (0.83-1.09); PROTHROMBIN TIME (PATIENT) 18.4 SEC (9.7-13.0)
[2020-11-05 08:14] LABS: ACTIVATED PTT 57.8 SECONDS (25.2-36.5)
[2020-11-05 08:31] LABS: CHLORIDE 105 mmol/L (98-107); POTASSIUM 3.6 mmol/L (3.5-5.1); SODIUM 138 mmol/L (136-145)
[2020-11-05 08:33] LABS: ANION GAP 7 MMOL/L (8-16); BLOOD UREA NITROGEN 19.9 mg/dL (7-18); CALCIUM 8.6 mg/dL (8.5-10.1); CO2 27 mmol/L (21-32); MAGNESIUM 1.8 mg/dL (1.8-2.4)
[2020-11-05 08:34] LABS: GLUCOSE,RANDOM 107 mg/dL (74-106)
[2020-11-05 08:37] LABS: CREATININE 0.9 mg/dL (0.55-1.3); PHOSPHOROUS 3.3 mg/dL (2.5-4.9)
[2020-11-05] MEDS ORDERED: PARoxetine HCL 20 MG TABLET ONE (08:45)
[2020-11-05] MEDS ORDERED: PARoxetine HCL 10 MG TABLET ONE (08:46)
[2020-11-05] MEDS ORDERED: PT OWN MED DRAWER 7, Y5N ONE ×2 (08:57→11:43)
[2020-11-05] MEDS: ASCORBIC ACID 500 MG TABLET (FP) PO SCH ×2 (09:37→21:48)
[2020-11-05] MEDS: CHOLECALCIFEROL (VIT D3) 1,000 UNIT (25 MCG) TABLET PO SCH (09:39)
[2020-11-05] MEDS: RIVAROXABAN 15 MG TABLET PO SCH (09:40)
[2020-11-05] MEDS: ZINC SULFATE 220 MG CAPSULE (FP) PO SCH (09:40)
[2020-11-05] MEDS: PAROXETINE HCL 20 MG, PAROXETINE HCL 10 MG PO SCH (09:52)
[2020-11-05] MEDS: LIDOCAINE PATCH REMOVAL MC SCH (10:00)
[2020-11-05] MEDS: ACETAMINOPHEN 325 MG TABLET (FP) PO PRN ×2 (11:41→21:45)
[2020-11-05] MEDS ORDERED: HEPARIN NA (PORCINE) 5,000 UNITS/ML 1ML VIAL IVPUSH PRN ×2 (12:09)
[2020-11-05] MEDS ORDERED: MORPHINE SULFATE 2 MG/ML VIAL IVPUSH PRN (13:16)
[2020-11-05] MEDS ORDERED: ACETAMINOPHEN 1000 MG/100 ML VIAL (NON FORMULARY) IVPB ONE (14:30)
[2020-11-05] MEDS ORDERED: DEXAMETHASONE 4 MG TABLET (FP) PO ONE (16:14)
[2020-11-05] MEDS: HEPARIN INFUSION - 25,000 UNITS/500 ML INFUS.BAG IVPB SCH (19:16)
[2020-11-05] MEDS: NICOTINE 21 MG/24 HOURS TOPICAL PATCH TD SCH (19:29)
[2020-11-05] MEDS: clonazePAM 0.5 MG TABLET PO PRN (21:47)
[2020-11-06] MEDS: ACETAMINOPHEN 325 MG TABLET (FP) PO PRN ×3 (06:04→21:12)
[2020-11-06] MEDS: LEVOTHYROXINE NA 50 MCG TABLET (FP) PO SCH (06:05)
[2020-11-06 08:08] LABS: HEMATOCRIT 35.9 % (32.4-45.2); HEMOGLOBIN 12.4 GM/dL (10.7-15.3); MCH 32.4 pg (25.7-33.7); MCHC 34.7 g/dl (32.0-36.0); MEAN CELL VOLUME 93.6 fl (80-96); MEAN PLT VOLUME 10.2 fl (7.5-11.1); PLATELET COUNT 152 K/MM3 (134-434); RBC 3.83 M/mm3 (3.60-5.2); RDW 12.3 % (11.6-15.6); WHITE BLOOD COUNT 9.6 K/mm3 (4.0-10.0)
[2020-11-06 10:19] LABS: N-TERMINAL BNP 516.3 pg/ml (5-125)
[2020-11-06] MEDS ORDERED: PARoxetine HCL 20 MG TABLET ONE (10:31)
[2020-11-06] MEDS ORDERED: PARoxetine HCL 10 MG TABLET ONE (10:31)
[2020-11-06] MEDS ORDERED: PT OWN MED DRAWER 7, Y5N ONE ×2 (10:32→21:18)
[2020-11-06] MEDS: NICOTINE 21 MG/24 HOURS TOPICAL PATCH TD SCH (11:20)
[2020-11-06] MEDS: PAROXETINE HCL 20 MG, PAROXETINE HCL 10 MG PO SCH (11:20)
[2020-11-06] MEDS: ASCORBIC ACID 500 MG TABLET (FP) PO SCH ×2 (11:20→21:12)
[2020-11-06] MEDS: CHOLECALCIFEROL (VIT D3) 1,000 UNIT (25 MCG) TABLET PO SCH (11:20)
[2020-11-06] MEDS: ZINC SULFATE 220 MG CAPSULE (FP) PO SCH (11:20)
[2020-11-06] MEDS: HEPARIN INFUSION - 25,000 UNITS/500 ML INFUS.BAG IVPB SCH (14:30)
[2020-11-06] MEDS: LIDOCAINE PATCH REMOVAL MC SCH (14:30)
[2020-11-06] MEDS: DEXAMETHASONE 4 MG TABLET (FP) PO SCH (18:45)
[2020-11-06] MEDS: FAMOTIDINE 20 MG TABLET PO SCH ×2 (18:45→21:15)
[2020-11-06] MEDS: clonazePAM 0.5 MG TABLET PO PRN (21:12)
[2020-11-07] MEDS: LEVOTHYROXINE NA 50 MCG TABLET (FP) PO SCH (07:00)
[2020-11-07 07:26] LABS: HEMATOCRIT 36.3 % (32.4-45.2); HEMOGLOBIN 12.3 GM/dL (10.7-15.3); MCHC 33.9 g/dl (32.0-36.0); MEAN CELL VOLUME 94.2 fl (80-96); MEAN PLT VOLUME 10.4 fl (7.5-11.1); PLATELET COUNT 165 K/MM3 (134-434); RBC 3.85 M/mm3 (3.60-5.2); RDW 12.4 % (11.6-15.6); WHITE BLOOD COUNT 9.8 K/mm3 (4.0-10.0)
[2020-11-07 07:50] LABS: MAGNESIUM 2.1 mg/dL (1.8-2.4)
[2020-11-07] MEDS ORDERED: PARoxetine HCL 10 MG TABLET ONE (08:28)
[2020-11-07] MEDS ORDERED: PARoxetine HCL 20 MG TABLET ONE (08:28)
[2020-11-07] MEDS: CHOLECALCIFEROL (VIT D3) 1,000 UNIT (25 MCG) TABLET PO SCH (10:25)
[2020-11-07] MEDS: clonazePAM 0.5 MG TABLET PO PRN ×2 (10:25→22:02)
[2020-11-07] MEDS: NICOTINE 21 MG/24 HOURS TOPICAL PATCH TD SCH (10:25)
[2020-11-07] MEDS: ASCORBIC ACID 500 MG TABLET (FP) PO SCH ×2 (10:25→22:02)
[2020-11-07] MEDS: ZINC SULFATE 220 MG CAPSULE (FP) PO SCH (10:26)
[2020-11-07] MEDS: FAMOTIDINE 20 MG TABLET PO SCH ×2 (10:26→22:01)
[2020-11-07] MEDS: PAROXETINE HCL 20 MG, PAROXETINE HCL 10 MG PO SCH (10:26)
[2020-11-07] MEDS: DEXAMETHASONE 4 MG TABLET (FP) PO SCH (10:29)
[2020-11-07] MEDS: LIDOCAINE PATCH REMOVAL MC SCH (10:56)
[2020-11-07] MEDS: HEPARIN INFUSION - 25,000 UNITS/500 ML INFUS.BAG IVPB SCH (18:00)
[2020-11-07] MEDS ORDERED: PT OWN MED DRAWER 7, Y5N ONE (20:30)
[2020-11-07] MEDS: ACETAMINOPHEN 325 MG TABLET (FP) PO PRN (22:00)
[2020-11-08] MEDS: ACETAMINOPHEN 325 MG TABLET (FP) PO PRN (05:59)
[2020-11-08] MEDS: LEVOTHYROXINE NA 50 MCG TABLET (FP) PO SCH (06:01)
[2020-11-08 08:01] LABS: HEMATOCRIT 35.8 % (32.4-45.2); HEMOGLOBIN 12.1 GM/dL (10.7-15.3); MCH 31.9 pg (25.7-33.7); MCHC 33.9 g/dl (32.0-36.0); MEAN CELL VOLUME 94.1 fl (80-96); MEAN PLT VOLUME 10.3 fl (7.5-11.1); PLATELET COUNT 211 K/MM3 (134-434); RDW 12.4 % (11.6-15.6); WHITE BLOOD COUNT 12.8 K/mm3 (4.0-10.0)
[2020-11-08] MEDS ORDERED: PARoxetine HCL 20 MG TABLET ONE (08:50)
[2020-11-08] MEDS ORDERED: PARoxetine HCL 10 MG TABLET ONE (08:50)
[2020-11-08] MEDS ORDERED: PT OWN MED DRAWER 7, Y5N ONE ×2 (08:51→20:39)
[2020-11-08] MEDS: NICOTINE 21 MG/24 HOURS TOPICAL PATCH TD SCH (09:32)
[2020-11-08] MEDS: DEXAMETHASONE 4 MG TABLET (FP) PO SCH (09:32)
[2020-11-08] MEDS: CHOLECALCIFEROL (VIT D3) 1,000 UNIT (25 MCG) TABLET PO SCH (09:32)
[2020-11-08] MEDS: ASCORBIC ACID 500 MG TABLET (FP) PO SCH ×2 (09:32→21:24)
[2020-11-08] MEDS: PAROXETINE HCL 20 MG, PAROXETINE HCL 10 MG PO SCH (09:32)
[2020-11-08] MEDS: ZINC SULFATE 220 MG CAPSULE (FP) PO SCH (09:32)
[2020-11-08] MEDS: FAMOTIDINE 20 MG TABLET PO SCH ×2 (09:38→21:24)
[2020-11-08] MEDS: HEPARIN INFUSION - 25,000 UNITS/500 ML INFUS.BAG IVPB SCH ×2 (14:02→20:15)
[2020-11-09] MEDS: LEVOTHYROXINE NA 50 MCG TABLET (FP) PO SCH (06:56)
[2020-11-09 07:58] LABS: HEMOGLOBIN 12.8 GM/dL (10.7-15.3); MCH 31.7 pg (25.7-33.7); MCHC 33.6 g/dl (32.0-36.0); MEAN CELL VOLUME 94.3 fl (80-96); MEAN PLT VOLUME 10.5 fl (7.5-11.1); PLATELET COUNT 269 K/MM3 (134-434); RBC 4.03 M/mm3 (3.60-5.2); RDW 12.4 % (11.6-15.6); WHITE BLOOD COUNT 14.5 K/mm3 (4.0-10.0)
[2020-11-09] MEDS ORDERED: PARoxetine HCL 20 MG TABLET ONE (09:02)
[2020-11-09] MEDS ORDERED: PARoxetine HCL 10 MG TABLET ONE (09:03)
[2020-11-09] MEDS ORDERED: PT OWN MED DRAWER 7, Y5N ONE ×2 (09:04→14:23)
[2020-11-09] MEDS: CHOLECALCIFEROL (VIT D3) 1,000 UNIT (25 MCG) TABLET PO SCH (09:22)
[2020-11-09] MEDS: clonazePAM 0.5 MG TABLET PO PRN (09:22)
[2020-11-09] MEDS: NICOTINE 21 MG/24 HOURS TOPICAL PATCH TD SCH (09:22)
[2020-11-09] MEDS: ASCORBIC ACID 500 MG TABLET (FP) PO SCH (09:23)
[2020-11-09] MEDS: PAROXETINE HCL 20 MG, PAROXETINE HCL 10 MG PO SCH (09:23)
[2020-11-09] MEDS: ZINC SULFATE 220 MG CAPSULE (FP) PO SCH (09:23)
[2020-11-09] MEDS: DEXAMETHASONE 4 MG TABLET (FP) PO SCH (09:23)
[2020-11-09] MEDS: FAMOTIDINE 20 MG TABLET PO SCH (09:23)
[2020-11-09] MEDS ORDERED: RIVAROXABAN 15 MG TABLET PO ONE (13:30)
[2020-11-09 14:22] VITALS: BP 131/75; PULSE 18; TEMP 98.6
== END 2020-11-09 15:22 | disposition home or self-care (01) | DRG 177 ==
LOC: JER 16:23 → JERBED 21:28 → J4W 11-04 16:20
PROVIDERS: ADMIT Internal Medicine; ATTEND Nurse Practitioner Family
DX: U07.1 COVID-19 (principal); I26.99 Other pulmonary embolism without acute cor pulmonale; E03.9 Hypothyroidism, unspecified; I10 Essential (primary) hypertension; G43.909 Migraine, unspecified, not intractable, without status migrainosus; F32.9 Major depressive disorder, single episode, unspecified; R00.1 Bradycardia, unspecified; G60.9 Hereditary and idiopathic neuropathy, unspecified; R07.9 Chest pain, unspecified; F41.0 Panic disorder [episodic paroxysmal anxiety]
CPT/HCPCS: 36415; 71045-TC-FY; 71046-TC-FY; 71275-TC; 80048; 80053; 80061; 82272; 82550; 82728; 82962; 83036; 83615; 83721; 83735; 83880; 84100; 84443; 84484; 85025; 85027; 85379; 85384; 85610; 85730; 86140; 86769; 86850; 86900; 86901; 93005; 93010; 93306-TC; 93970-TC; 94010; 94761; 99285-25; C9803; J0131; J1644; U0003

== ENCOUNTER 2021-04-23 10:40 | Inpatient (IN) | payer OTHER, MEDICARE ==
[2021-04-23] MEDS ORDERED: SODIUM CHLORIDE 0.9% 500 ML INFUS.BAG IV ONE (11:36)
[2021-04-23 11:51] LABS: BASO % 0.8 % (0-2.0); EOS % 2.8 % (0-4.5); HEMATOCRIT 37.6 % (32.4-45.2); HEMOGLOBIN 12.9 GM/dL (10.7-15.3); LYMPH % 33.8 % (8-40); MCH 31.4 pg (25.7-33.7); MCHC 34.2 g/dl (32.0-36.0); MEAN CELL VOLUME 91.7 fl (80-96); MEAN PLT VOLUME 8.3 fl (7.5-11.1); MONO % 9.8 % (3.8-10.2); NEUT % 52.8 % (42.8-82.8); PLATELET COUNT 164 10^3/uL (134-434); RDW 12.5 % (11.6-15.6); WHITE BLOOD COUNT 5.8 K/mm3 (4.0-10.0)
[2021-04-23 11:58] LABS: INR 1.02 (0.83-1.09); PROTHROMBIN TIME (PATIENT) 12.3 SEC (9.7-13.0)
[2021-04-23 12:00] LABS: ACTIVATED PTT 30.6 SECONDS (25.2-36.5)
[2021-04-23 12:17] LABS: ALBUMIN 3.7 g/dl (3.4-5.0); BLOOD UREA NITROGEN 14.5 mg/dL (7-18)
[2021-04-23 12:20] LABS: CREATININE 0.8 mg/dL (0.55-1.3)
[2021-04-23 12:22] LABS: BILIRUBIN,TOTAL 0.5 mg/dL (0.2-1)
[2021-04-23 12:54] LABS: EPI CELLS 2 /uL (0-25.1); HYALINE CASTS 0 /uL (0-3.1); PH,URINE 7.5 (5.0-8.0); URINE APPEARANCE CLEAR; URINE BACTERIA 17 /uL (0-1359); URINE BILIRUBIN NEGATIVE (NEGATIVE); URINE COLOR YELLOW; URINE GLUCOSE (UA) NEGATIVE (NEGATIVE); URINE KETONE NEGATIVE (NEGATIVE); URINE LEUK ESTERASE NEGATIVE (NEGATIVE); URINE NITRITE NEGATIVE (NEGATIVE); URINE PROTEIN 1+ (NEGATIVE); URINE RBC 7 /uL (0-23.9); URINE UROBILINOGEN 0.2 mg/dL (0.2-1.0); URINE WBC 2 /uL (0-25.8)
[2021-04-23] MEDS ORDERED: HEPARIN NA (PORCINE) 5,000 UNITS/ML 1ML VIAL IVPUSH ONE ×2 (13:22→13:45)
[2021-04-23] MEDS ORDERED: HEPARIN - 25,000 UNIT in SODIUM CHLORIDE 495 ML IV SCH (13:30)
[2021-04-23] MEDS ORDERED: HEPARIN INFUSION - 25,000 UNITS/500 ML INFUS.BAG IVPB ONE (13:35)
[2021-04-23] MEDS ORDERED: HEPARIN NA (PORCINE) 5,000 UNITS/ML 1ML VIAL ONE (13:35)
[2021-04-23] MEDS ORDERED: HEPARIN NA (PORCINE) 5,000 UNITS/ML 1ML VIAL IVPUSH PRN ×2 (13:45)
[2021-04-23] MEDS: HEPARIN - 25,000 UNIT in SODIUM CHLORIDE 495 ML IV SCH (14:30)
[2021-04-23] MEDS ORDERED: ACETAMINOPHEN 1000 MG/100 ML VIAL (NON FORMULARY) IVPB ONE (15:04)
[2021-04-23] MEDS ORDERED: ACETAMINOPHEN INJECTION 100 ML IVPB ONE (15:29)
[2021-04-23] MEDS ORDERED: clonazePAM 0.5 MG TABLET PO PRN (16:28)
[2021-04-23 18:32] VITALS: BMI 22.2
[2021-04-23] MEDS: propRANOLol HCL 10 MG TABLET PO SCH (22:54)
[2021-04-24] MEDS: LEVOTHYROXINE NA 50 MCG TABLET (FP) PO SCH (06:11)
[2021-04-24 06:34] LABS: EOS % 3.7 % (0-4.5); HEMATOCRIT 37.6 % (32.4-45.2); HEMOGLOBIN 12.9 GM/dL (10.7-15.3); LYMPH % 43.4 % (8-40); MCH 31.9 pg (25.7-33.7); MCHC 34.5 g/dl (32.0-36.0); MEAN CELL VOLUME 92.4 fl (80-96); MEAN PLT VOLUME 8.5 fl (7.5-11.1); MONO % 9.2 % (3.8-10.2); NEUT % 42.7 % (42.8-82.8); PLATELET COUNT 145 10^3/uL (134-434); RBC 4.06 M/mm3 (3.60-5.2); RDW 12.7 % (11.6-15.6); WHITE BLOOD COUNT 6.2 K/mm3 (4.0-10.0)
[2021-04-24 08:24] LABS: ALBUMIN 3.4 g/dl (3.4-5.0); BLOOD UREA NITROGEN 16.2 mg/dL (7-18); CALCIUM 8.3 mg/dL (8.5-10.1); MAGNESIUM 2.3 mg/dL (1.8-2.4)
[2021-04-24 08:33] LABS: BILIRUBIN,TOTAL 0.3 mg/dL (0.2-1); CREATININE 0.8 mg/dL (0.55-1.3); PHOSPHOROUS 4.7 mg/dL (2.5-4.9); TOT PROT 6.3 g/dl (6.4-8.2)
[2021-04-24] MEDS ORDERED: PT OWN MED DRAWER 7, Y5N ONE ×3 (09:27→18:00)
[2021-04-24] MEDS ORDERED: INSULIN (NOVOLOG) ASPART 100 UNITS/ML 10ML VIAL ONE (09:54)
[2021-04-24] MEDS ORDERED: PARoxetine HCL 30 MG TABLET PO SCH (10:00)
[2021-04-24] MEDS: propRANOLol HCL 10 MG TABLET PO SCH ×2 (10:18→22:15)
[2021-04-24] MEDS: HEPARIN - 25,000 UNIT in SODIUM CHLORIDE 495 ML IV SCH (14:47)
[2021-04-24] MEDS: PAROXETINE HCL 20 MG, PAROXETINE HCL 10 MG PO SCH (14:47)
[2021-04-25] MEDS: LEVOTHYROXINE NA 50 MCG TABLET (FP) PO SCH (06:48)
[2021-04-25] MEDS ORDERED: APIXABAN 5 MG TABLET PO SCH ×2 (08:30→10:00)
[2021-04-25] MEDS ORDERED: ACETAMINOPHEN 325 MG TABLET (FP) PO PRN (09:25)
[2021-04-25] MEDS ORDERED: PT OWN MED DRAWER 7, Y5N ONE (09:56)
[2021-04-25] MEDS ORDERED: POLYETHYLENE GLYCOL (HEALTHYLAX) 3350 17 GM PACKET PO SCH (10:00)
[2021-04-25] MEDS ORDERED: RIVAROXABAN 20 MG TABLET PO SCH (10:00)
[2021-04-25] MEDS: propRANOLol HCL 10 MG TABLET PO SCH (10:14)
[2021-04-25] MEDS ORDERED: PARoxetine HCL 10 MG TABLET PO SCH (10:15)
[2021-04-25] MEDS: PAROXETINE HCL 20 MG, PAROXETINE HCL 10 MG PO SCH (10:16)
[2021-04-25 15:27] VITALS: BP 131/72; PULSE 59; TEMP 98.1
== END 2021-04-25 15:45 | disposition home or self-care (01) | DRG 176 ==
LOC: JER 10:40 → JERBED 13:31 → J2W 18:00
PROVIDERS: ADMIT Internal Medicine
DX: I26.99 Other pulmonary embolism without acute cor pulmonale (principal); I82.4Z1 Acute embolism and thrombosis of unspecified deep veins of right distal lower extremity; I10 Essential (primary) hypertension; E78.5 Hyperlipidemia, unspecified; E03.9 Hypothyroidism, unspecified; G43.909 Migraine, unspecified, not intractable, without status migrainosus; F32.9 Major depressive disorder, single episode, unspecified; F41.0 Panic disorder [episodic paroxysmal anxiety]; R07.81 Pleurodynia; N63.0 Unspecified lump in unspecified breast
CPT/HCPCS: 36415; 71275-TC; 80053; 81003; 83735; 84100; 84439; 84443; 84481; 84484; 85025; 85379; 85610; 85730; 87086; 93005; 93010; 93970-TC; 99285-25; C9803; J0131; J1644; Q9967; U0003; U0005

== ENCOUNTER 2023-10-25 11:08 | Emergency (ER) | payer OTHER, MEDICARE ==
[2023-10-25 11:29] VITALS: TEMP 99; BMI 25.7
[2023-10-25 13:16] LABS: BASO % 0.6 % (0-2.0); EOS % 2.9 % (0-4.5); HEMATOCRIT 38.6 % (32.4-45.2); HEMOGLOBIN 13.4 GM/dL (10.7-15.3); LYMPH % 35.9 % (8-40); MCH 32.4 pg (25.7-33.7); MCHC 34.9 g/dl (32.0-36.0); MEAN CELL VOLUME 92.9 fl (80-96); MEAN PLT VOLUME 8.6 fl (7.5-11.1); MONO % 7.9 % (3.8-10.2); NEUT % 52.7 % (42.8-82.8); PLATELET COUNT 186 10^3/uL (134-434); RBC 4.15 M/mm3 (3.60-5.2); RDW 12.9 % (11.6-15.6); WHITE BLOOD COUNT 7.1 K/mm3 (4.0-10.0)
[2023-10-25 13:25] LABS: INR 1.04 (0.83-1.09); PROTHROMBIN TIME (PATIENT) 12.1 SEC (9.7-13.0)
[2023-10-25 13:28] LABS: ACTIVATED PTT 34.6 SECONDS (25.2-36.5)
[2023-10-25 13:48] LABS: ALBUMIN 3.7 g/dl (3.4-5.0); BLOOD UREA NITROGEN 18.2 mg/dL (7-18); CALCIUM 9.9 mg/dL (8.5-10.1)
[2023-10-25 13:51] LABS: CREATININE 0.7 mg/dL (0.55-1.3)
[2023-10-25 13:53] LABS: BILIRUBIN,TOTAL 0.7 mg/dL (0.2-1); TOT PROT 6.9 g/dl (6.4-8.2)
[2023-10-25 13:56] LABS: N-TERMINAL BNP 118.7 pg/ml (5-125)
[2023-10-25 17:01] VITALS: BP 150/81; PULSE 75; RESP 15
== END 2023-10-25 17:01 | disposition home or self-care (01) ==
LOC: JER 11:08
DX: I10 Essential (primary) hypertension (principal); R51.9 Headache, unspecified; R07.9 Chest pain, unspecified; Z20.822 Contact with and (suspected) exposure to COVID-19
CPT/HCPCS: 0241U-QW; 36415; 70450-TC; 71045-TC-FY; 80053; 83880; 84484; 85025; 85379; 85610; 85730; 93005; 93010; 99285-25